=== PATIENT | male | born 1960 | race Caucasian/White ===

== ENCOUNTER 2024-09-17 09:51 | Day surgery (SDC) | payer BC ==
[2024-09-14 15:45] LABS: Absolute Basophils 0.1 K/uL (0-0.5); Absolute Eosinophils 0.1 K/uL (0-0.5); Absolute Lymphocytes (CBC) 1.2 K/uL (0.7-4.9); Absolute Monocytes 0.3 K/uL (0.1-1.3); Absolute Neutrophil 3.7 K/uL (1.8-8.0); Basophils % 1.3 % (0-1.3); Eosinophils % 1.2 % (0-4.4); Hematocrit 37.2 % (39.6-49.0); MCH 30.6 pg (27.0-35.0); MCHC 35.1 g/dL (32.0-36.0); MCV 87.4 fL (80-100); MPV 7.7 fL (7.6-11.3); Monocytes % 5.8 % (3.3-12.3); Neutrophils % 69.7 % (41.7-73.7); Platelets 183 thou/uL (152-406); RBC Red Blood Cell Count 4.25 M/uL (4.33-5.43); Red Cell Distribution Width 13.2 % (12.1-15.2)
--- NOTE | 2024-09-16 12:36 | EKG ---
Test Date: 2024-09-14 Test Time: 15:15:03 [employer] Engineer: MICHELLE MEASUREMENT RESULTS: Intervals: Rate: 59 ID: [id number] QRSD: 100 QT: 386 QTc: 382 [place]: P: 46 ID: [id number] QRS: 42 T: 38 INTERPRETIVE STATEMENTS: Sinus bradycardia Otherwise normal ECG Compared to ECG 12/15/2004 11:58:00 Sinus rhythm no longer present Myocardial infarct finding no longer present Electronically Signed On 09-16-24 12:27:03 CDT by Onofre Carver
[2024-09-17] MEDS ORDERED: CLINDAMYCIN 900MG/D5W 900 MG/50 ML IVPB IV ONE (10:09)
[2024-09-17] MEDS: Ringers Lactate 1,000 ML IV ONE (10:15)
[2024-09-17] MEDS ORDERED: NA CHLORIDE 0.9% 250 ML ONE (12:03)
[2024-09-17] MEDS ORDERED: NA CHLORIDE 0.9% 500 ML ONE (12:03)
[2024-09-17] MEDS ORDERED: ROCURONIUM 50 MG/5 ML VIAL IV ONE (14:10)
[2024-09-17] MEDS ORDERED: SUCCINYLCHOLINE 20 MG/ML (10 ML) IV ONE (14:10)
[2024-09-17] MEDS ORDERED: LIDOCAINE 2% MPF 5 ML VIAL ONE (14:11)
[2024-09-17] MEDS ORDERED: ONDANSETRON 4 MG/2 ML VIAL ONE (14:11)
[2024-09-17] MEDS ORDERED: propofoL 200 MG/20 ML VIAL IV ONE (14:11)
[2024-09-17] MEDS ORDERED: FENTANYL CITR 100 MCG/2 ML ONE (14:11)
[2024-09-17] MEDS ORDERED: MIDAZOLAM HCL 2 MG/2 ML INJ ONE (14:11)
[2024-09-17] MEDS ORDERED: SUGAMMADEX SODIUM 200 MG/2 ML VIAL IV ONE (14:23)
[2024-09-17] MEDS ORDERED: dexAMETHasone 10 MG/ML VIAL ONE (14:36)
[2024-09-17] MEDS: LIDOCAINE HCL/EPINEPHRINE 20 ML MDV ONE (14:50)
[2024-09-17] MEDS: OXYMETAZOLINE HCL 0.05% 30ML NAS ONE (14:52)
[2024-09-17] MEDS: BACITRACIN OINTMENT 14 GM TUBE TOP ONE (15:21)
[2024-09-17] MEDS: HYDROMORPHONE HCL 1 MG/ML INJ ONE (16:02)
[2024-09-17 16:23] VITALS: O2SAT 99
[2024-09-17 17:02] VITALS: BP 145/83
[2024-09-17 17:10] VITALS: TEMP 97.4
--- NOTE | 2024-09-23 00:29 | OP ---
Date of Procedure: 09/17/2024 Surgeon: PRECIOUS TEMPLETON Preoperative Diagnoses: 1. Left maxillary sinusitis, chronic. 2. Bilateral nasal obstruction secondary to nasal valve collapse and inferior turbinate hypertrophy. Procedures: 1. Stereotactic computer-assisted navigational guidance, CPT code 59303. 2. Left lavage of maxillary sinus via cannulation. 3. Bilateral inferior turbinate submucosal Coblation. 4. Bilateral nasal valve remodeling with radiofrequency ablation, 24595-40 and swell body reduction, bilateral, CPT code 61263-80. Anesthesia: General endotracheal anesthesia was administered. I also infiltrated the nasal valves, nasal septum, and axilla of the left middle turbinate with approximately 10 mL of 1% lidocaine with 1 :100,000 epinephrine. Estimated Blood Loss: Scant, less than 2 mL. Specimens: Mucopurulent secretions suctioned from the left maxillary sinus and [facility], culture and sensitivity, and fungal cultures. Findings: Mucopurulent secretions, left maxillary sinus with wide antrostomy; mild left-sided deviat ed septum; bilateral nasal valve stenosis, static and dynamic; bilateral inferior turbinate hypertrop hy, moderate, 3+/4. Complications: None. Disposition: Stable. The patient tolerated the procedure well. Indication For Procedure: The patient is a pleasant 63-year-old male with chronic left cheek pain ex tending up into the left frontal sinus. CT scan demonstrated fluid level noted in the left maxillary sinus, but the left frontal sinus was clear as was the left ethmoid sinus. The patient also has a m ild left-sided deviation and significant nasal valve stenosis and inferior turbinate hypertrophy, micaela ateral nasal cavities. These were indications to bring the patient to the operative suite for the ab ove-mentioned procedure. He understood and all questions were answered. Risks versus benefits and c omplications were explained in detail, and a consent was signed and was placed in the chart. Description Of Procedure: The patient was transferred from the preoperative holding area to the oper ative suite by Department of Anesthesia, placed on the operating table supine, sedated and intubated in normal fashion. Table was rotated [address] scan was calibrated with a stereotactic im age guidance system and was found to be working appropriately. I infiltrated approximately 10 mL of 1% lidocaine with 1:100,000 epinephrine into bilateral nasal valves, mucosa, bilateral inferior turbi nates, and left axilla of middle turbinates and Afrin-soaked nasal pledgets were used for vasoconstri ction and decongestion, and these were inserted into bilateral nasal cavities. The patient was then prepped and draped. Utilizing a 0-degree rigid nasal endoscope, I removed the pledgets from bilateral nasal cavities and photo documentation was obtained from bilateral nasal cavities all the way to the posterior choanae. The patient had mild deviated septum, thus septoplasty was not necessary. However, the patient had significant hypertrophy of bilateral inferior turbinates 3+/4 as well as static bilateral nasal valve collapse. He also had a very large left maxillary antrostomy. After slightly lateralizing the post erior inferior turbinates, I was able to easily enter into the left maxillary sinus and I lavaged the sinus with a curved olive-tip suction connected to 50 cc of sterile saline, and I lavaged initially with a 50 cc and this specimen was obtained into a [employer] trap specimen cup and submitted to [employer] [facility]. I then continued the lavage with another 50 cc of saline for a total of 100 mL. I then suctio sarah the residual saline out of the left maxillary sinus. Next, my attention was placed to the inferior turbinates. The left inferior turbinate Coblation was performed on a setting of 7 of ablation and 3 for coagulation by inserting the wand between the mucos a and the bone. I advanced the one posteriorly, thereby submucosal ablation was performed. The wand was then removed and I repeated this procedure on the left side, in which the wand was introduced in to the anterior face of the right inferior turbinate between the mucosa and bone and advanced posteri krystina, and submucosal ablation of the right inferior turbinate was performed on a setting of 7 for abl ation and 3 of coagulation. The wand was then removed. I then used the radiofrequency wand to perfo rm bilateral nasal valve remodeling at 4 to 5 in different areas of the left nasal valve between the caudal edge of the upper left lateral cartilage and the superior edge of the lower lateral cartilage. I placed the wand at several different spots with ablation of 5, up to 60 degrees Celsius at 5 diff erent spots of the nasal valve on the left. This was then performed on the right by inserting the wa nd at different areas of the internal nasal valve between the superior edge of the lower lateral cart ilage and the caudal border of the upper lateral cartilage. Radiofrequency was performed on setting of 5 for ablation at 5 different areas. I then touched the septal swell bodies on the right with the radiofrequency wand on setting of 5 for ablation at 3 different areas of the swell body, and then I repeated this on the left, whereby the radiofrequency wand was used to treat the left septal swell lyn dy at 3 different locations. Mucoid secretions were removed with suction. A mustache dressing was p laced. He tolerated the procedure well and will be discharged home on antibiotic ointment and oral a ntibiotics and pain medication as needed, and he will follow up in 1 week or sooner if needed. XI/ROBINA Voice ID: [id number] Report ID: [id number]
== END 2024-09-17 17:08 | disposition home or self-care (01) ==
LOC: OR 09:51
PROVIDERS: ATTEND Otolaryngology Facial Plastic Surgery
PROC: 095KXZZ Destruction of Nasal Mucosa and Soft Tissue, External Approach (ICD-10-PCS; 2024-09-17)
PROC: 09TL8ZZ Resection of Nasal Turbinate, Via Natural or Artificial Opening Endoscopic (ICD-10-PCS; principal; 2024-09-17 11:45)
PROC: 09QK8ZZ Repair Nasal Mucosa and Soft Tissue, Via Natural or Artificial Opening Endoscopic (ICD-10-PCS; 2024-09-17 11:45)
DX: J32.0 Chronic maxillary sinusitis (principal); J34.820 Internal nasal valve collapse; J34.3 Hypertrophy of nasal turbinates; J34.2 Deviated nasal septum; R51.9 Headache, unspecified
CPT/HCPCS: 30802; 30469; 30117; 61782; 93005; 85025; 80048; 36415; 87205; 87102; J2704; J2003; J2250; J3010; J1100; J1171; J2405; J7120; J7050; J7040